=== PATIENT | male | born 1975 | race Caucasian/White ===

== ENCOUNTER 2021-09-12 15:30 | Emergency (ER) | payer MEDICAID ==
[~2021-09-12] VITALS: Ht 170.2 cm; Wt 80.0 kg
[2021-09-12] MEDS ORDERED: SODIUM CHLORIDE 0.9% 1,000 ML IV ONE (16:00)
[2021-09-12] MEDS ORDERED: LORAZEPAM 2MG/ML CPJ IV ONE (16:00)
[2021-09-12 16:14] LABS: BASOPHILS % 1.6 % (0.0-2.0); EOSINOPHILS % 1.4 % (0.0-5.0); HEMATOCRIT. 39.7 % (42.0-52.0); HEMOGLOBIN. 13.4 g/dL (14.0-18.0); LYMPHOCYTES % 23.2 % (20.0-50.0); MEAN CORPUSCULAR HEMOGLOBIN 32.8 pg (28.0-32.0); MEAN CORPUSCULAR VOLUME 97.3 fL (80.0-94.0); MEAN PLATELET VOLUME 8.8 fl (7.4-10.4); MONOCYTES % 11.9 % (2.0-8.0); NEUTROPHILS % 61.9 % (40.0-76.0); PLATELET 177 x1000/uL (130-400); RED BLOOD CELL COUNT 4.08 mill/uL (4.7-6.1); RED CELL DISTRIBUTION WIDTH 14.1 % (11.6-14.6)
[2021-09-12 16:21] LABS: CHLORIDE 101 mEq/L (98-107)
[2021-09-12 16:25] LABS: ETHANOL BLOOD < 10 mg/dL
[2021-09-12] MEDS ORDERED: ONDANSETRON HCL 4MG/2ML INJ IV ONE (17:00)
[2021-09-12] MEDS ORDERED: CHLO10CA71 MT (18:57)
[2021-09-12 19:00] VITALS: BP 135/72
== END 2021-09-12 19:08 | disposition left against medical advice (07) ==
LOC: ER 15:30 → CANBEDREQ 18:59 → ER 19:08
DX: F10.239 Alcohol dependence with withdrawal, unspecified (principal); F10.229 Alcohol dependence with intoxication, unspecified; R56.9 Unspecified convulsions; R74.01 Elevation of levels of liver transaminase levels; Y90.0 Blood alcohol level of less than 20 mg/100 ml
CPT/HCPCS: 36415; 70450; 71045; 80053; 80320; 83605; 85025; 96361; 96374; 96375; 99285; J2060; J2405; J7030; Z7610; G0480